=== PATIENT | female | born 1970 | race Caucasian/White ===

== ENCOUNTER → 2023-06-14 | Day surgery (SDC) | payer BC ==
[2023-06-14 13:10] VITALS: RESP 18; TEMP 98.2
[2023-06-14 13:52] VITALS: BP 118/83; PULSE 72
--- NOTE | 2023-06-14 14:12 | US ---
ULTRASOUND GUIDED FNA THYROID BIOPSY: CLINICAL HISTORY: Request for 2.1 cm left thyroid nodule FNA FINDINGS: The procedure was explained to the patient. The risks, complications, benefits and alternatives were discussed and any questions were answered. Informed consent was obtained. Patient was placed supin e on the ultrasound table and prepped and draped in the usual sterile fashion. Utilizing a 25 gauge needle, five passes were made into the requested left thyroid nodule. Patient was stable throughout the procedure. Pathology is pending. All elements of maximal barrier technique were utilized. IMPRESSION: 1. Successful ultrasound guided FNA thyroid biopsy.
== END ==
LOC: RADPROMAIN 12:16
PROVIDERS: ATTEND Internal Medicine Endocrinology, Diabetes & Metabolism
DX: E04.1 Nontoxic single thyroid nodule (principal)
CPT/HCPCS: 10005; 88173; 88305

== ENCOUNTER → 2023-06-30 | Outpatient (CLI) | payer BC ==
[2023-07-01 04:17] LABS: ALT 13 U/L (8-44); AST 17 U/L (13-35); Albumin 4.5 g/dL (3.8-4.9); Albumin/Globulin Ratio 1.73 Ratio (1.60-3.17); Alkaline Phosphatase 77 U/L (41-126); BUN/Creat Ratio 32.33 Ratio (12.00-20.00); Blood Urea Nitrogen 19.4 mg/dL (9.0-27.0); Carbon Dioxide 22.7 mmol/L (21.6-31.8); Chloride 105 mmol/L (96-109); Globulin 2.6 g/dL (1.6-3.3); Glucose 88 mg/dL (70-110); Potassium 4.3 mmol/L (3.5-5.5); Sodium 141 mmol/L (135-145); Total Bilirubin 0.3 mg/dL (0.3-1.2); Total Protein 7.1 g/dL (6.2-8.2)
== END | disposition home or self-care (01) ==
LOC: LABWHC1 15:48
PROVIDERS: ATTEND Internal Medicine Endocrinology, Diabetes & Metabolism
DX: E03.8 Other specified hypothyroidism (principal); D35.1 Benign neoplasm of parathyroid gland; E55.9 Vitamin D deficiency, unspecified
CPT/HCPCS: 36415; 80053; 82306; 83970; 84443

== ENCOUNTER → 2023-12-06 | Outpatient (CLI) | payer BC ==
[2023-12-06 14:53] VITALS: BP 122/84; PULSE 93; TEMP 98.1; BMI 44.6
--- NOTE | 2023-12-06 17:11 | P.HPBAR ---
Bariatric H&P - History & Physicial H&P Date: 12/06/23 History & Physicial: Visit/CC: initial clinic visit Patient initial contact: Initial weight: Initial weight in pounds: Height: 5 ft 4 in Initial BMI: Last weight: Current weight: 117.934 kg Current weight in pounds: 260.00 Current BMI: 44.6 [place] body weight (based on NIH guidelines): 54.431 kg Excess body weight loss: The patient is a 53 year-old F who presents for Bariatric Assessment. Patient presents today to discuss weight loss surgery. Patient states she has been considering bariatric surgery for some time. Currently most interested in sleeve gastrectomy. She has a coworker that had a sleeve and did quite well. She has a sister who had a Jennifer-en-Y bypass open 15 years ago or so and unfortunately gained back a lot of her weight. Patient with past medical history including hypothyroidism and borderline hypercholesterolemia. No history of DVT or dysphagia. Non-smoker. Mild GERD symptoms. Takes Tums and occasional omeprazole. Surgical history includes . Patient has tried GLP-1 agonists in the past with some side effects and marginal benefit. Currently on Adipex. Review of Systems The patient denies any acute changes in vision or hearing, no dysphagia or odynophagia, no chest pain or shortness of breath, no dysuria or hematuria, no headache, no runny nose, no rectal bleeding or melena, no unexplained weight loss Past Medical History Past Medical History: Thyroid Disorder History of Any Multi-Drug Resistant Organisms: None Reported Past Surgical History: Section, Orthopedic Surgery Additional Past Surgical History / Comment(s): left knee surgery in high school Past Anesthesia/Blood Transfusion Reactions: No Reported Reaction Past Psychological History: No Psychological Hx Reported Smoking Status: Never smoker Past Alcohol Use History: Occasional Past Drug Use History: None Reported - Past Family History Father Family Medical History: Cancer Additional Family Medical History / Comment(s): Prostate cancer Mother Family Medical History: Cancer Additional Family Medical History / Comment(s): breast and renal cancer Surgical - Exam Vital Signs Temp Pulse BP 98.1 F 93 122/84 12/06/23 14:49 12/06/23 14:49 12/06/23 14:49 Physical exam: General: Well-developed, well-nourished HEENT: Normocephalic, sclerae nonicteric Abdomen: Nontender, nondistended Extremities: No edema Neuro: Alert and oriented Bariatric Assessment & Plan (1) Morbid obesity Narrative/Plan: 53-year-old female with a BMI of 44. Patient has comorbidities as described. P atient currently interested in gastrectomy. We discussed alternative options of weight loss surgeries including band, gastric bypass, duodenal switch. Estimated weight loss with the surgeries and associated risks both perioperative and long-term reviewed in detail. Patient remains interested in sleeve gastrectomy currently. She will continue to consider these options. Tentatively will plan upcoming EGD for preoperative assessment of the stomach. Patient will contact me with questions. Status: Acute Bariatric Checklist Checklist: Plan: Checklist: EGD: 1. Hiatal hernia: 2. H. Pylori: HgbA1c: Vitamin D: Smoking: Primary care physician referral: Psychiatry clearance: Cardiology clearance: Sleep study: Diet journal: VTE risk score: VTE risk level: Rehab needs at discharge:
== END ==
LOC: BARWHC3 13:59
PROVIDERS: ATTEND Surgery
DX: E66.01 Morbid (severe) obesity due to excess calories
CPT/HCPCS: 99212

== ENCOUNTER → 2023-12-06 | Outpatient (CLI) | payer BC ==
[2023-12-07 02:22] LABS: HCT 46.7 % (37.2-46.3); HGB 14.5 g/dL (12.0-15.0); MCH 26.8 pg (27.0-32.0); MCV 86.3 FL (80.0-97.0); Mean Platelet Volume 10.7 FL (9.5-12.2); NRBC Per 100 WBC 0 X 10*3/uL (0.00-0.01); Platelet Count 221 X 10*3/uL (140-440); RBC 5.41 X 10*6/uL (4.10-5.20); RDW 13.6 % (11.5-14.5)
[2023-12-07 03:20] LABS: ALT 13 U/L (8-44); AST 16 U/L (13-35); Albumin 4.6 g/dL (3.8-4.9); Alkaline Phosphatase 82 U/L (41-126); BUN/Creat Ratio 24.43 Ratio (12.00-20.00); Blood Urea Nitrogen 17.1 mg/dL (9.0-27.0); Calcium 9.9 mg/dL (8.7-10.3); Carbon Dioxide 23.5 mmol/L (21.6-31.8); Chloride 104 mmol/L (96-109); Globulin 2.7 g/dL (1.6-3.3); Glucose 95 mg/dL (70-110); Iron 68 UG/DL (50-170); Potassium 4.5 mmol/L (3.5-5.5); Sodium 141 mmol/L (135-145); Total Bilirubin 0.4 mg/dL (0.3-1.2); Total Protein 7.3 g/dL (6.2-8.2)
[2023-12-07 03:51] LABS: Vitamin B12 >3600.0 pg/mL (200.0-944.0)
== END | disposition home or self-care (01) ==
LOC: LABWHC1 15:42
PROVIDERS: ATTEND Family Medicine
DX: E89.1 Postprocedural hypoinsulinemia (principal); E88.810 Metabolic syndrome; E55.9 Vitamin D deficiency, unspecified; K90.89 Other intestinal malabsorption
CPT/HCPCS: 36415; 80053; 82306; 82607; 82746; 83036; 83540; 84425; 85027; 93005

== ENCOUNTER → 2023-12-27 | Outpatient (CLI) | payer BC ==
--- NOTE | 2023-12-28 10:03 | CA ---
Transthoracic Echo Report Name: Farnaz Comer Age: 53 Gender: F : 1970 Exam Date: 12/27/2023 16:07 Exam Location: [facility] Ht (in): 65 Wt (lb): 260 Ordering Physician: Madi Ku MD Attending/Referring Phys: Veronica Grajeda [facility] Hvac Technician Krissy Gordon RDCS Procedure CPT: Indications: Z01.818 ENCOUNTER FOR OTHER PREPROCEDURAL EXAMINAT Cardiac Hx: Technical Quality: Good Contrast 1: Total Dose (mL): Contrast 2: Total Dose (mL): MEASUREMENTS (Male / Female) Normal Values 2D ECHO LV Diastolic Diameter PLAX 4.6 cm 4.2 - 5.9 / 3.9 - 5.3 cm LV Systolic Diameter PLAX 2.8 cm IVS Diastolic Thickness 1.4 cm 0.6 - 1.0 / 0.6 - 0.9 cm LVPW Diastolic Thickness 1.3 cm 0.6 - 1.0 / 0.6 - 0.9 cm LV Relative Wall Thickness 0.6 RV Internal Dim ED PLAX 3.1 cm LA Systolic Diameter LX 4.1 cm 3.0 - 4.0 / 2.7 - 3.8 cm LV Diastolic Volume MOD BP 69.0 cm??? 67 - 155 / 56 - 104 cm??? LV Systolic Volume MOD BP 28.3 cm??? 22 - 58 / 19 - 49 cm??? LV Ejection Fraction MOD BP 59.0 % >= 55 % LV Cardiac Index MOD BP 1261.6 cm???/min???m??? LV Diastolic Volume MOD 4C 74.0 cm??? LV Systolic Volume MOD 4C 33.0 cm??? LV Ejection Fraction MOD 4C 55.4 % LV Cardiac Index MOD 4C 1268.3 cm???/min???m??? LV Diastolic Length 4C 7.8 cm LV Systolic Length 4C 6.7 cm LV Diastolic Volume MOD 2C 62.6 cm??? LV Systolic Volume MOD 2C 24.2 cm??? LV Ejection Fraction MOD 2C 61.3 % LV Cardiac Index MOD 2C 1189.2 cm???/min???m??? LV Diastolic Length 2C 7.5 cm LV Systolic Length 2C 6.8 cm LA Volume 43.2 cm??? 18 - 58 / 22 - 52 cm??? LA Volume Index 18.1 cm???/m??? 16 - 28 cm???/m??? M-MODE Aortic Root Diameter MM 3.1 cm LA Systolic Diameter MM 3.5 cm LA Ao Ratio MM 1.1 AV Cusp Separation MM 1.9 cm DOPPLER MV Area PHT 2.5 cm??? Mitral E Point Velocity 59.7 cm/s Mitral A Point Velocity 90.8 cm/s Mitral E to A Ratio 0.7 MV Deceleration Time 303.4 ms FINDINGS Left Ventricle Left ventricular ejection fraction is estimated at 55-60%. Mildly increased left ventricular wall thickness. Left ventricular wall thickness normal. Normal left ventricular systolic function with no obvious regional wall motion abnormalities. Right Ventricle Normal right ventricular size and function. Right ventricular systolic pressure within normal limits. Right Atrium Normal right atrial size. Left Atrium Mildly increased left atrial diameter. Mitral Valve Structurally normal mitral valve. Trace to mild mitral regurgitation. No mitral stenosis. Aortic Valve Trileaflet aortic valve. No aortic valve stenosis or regurgitation. Tricuspid Valve Structurally normal tricuspid valve. Trace tricuspid regurgitation. No tricuspid stenosis. Pulmonic Valve Structurally normal pulmonic valve. Trace pulmonic regurgitation. No pulmonic stenosis. Pericardium No pericardial or pleural effusion. Aorta Normal size aortic root and proximal ascending aorta. CONCLUSIONS Normal LV size and systolic function. No significant abnormality on the Doppler exam. No pericardial effusion. No pulmonary hypertension Previewed by: Dr. Otto Lainez MD (Electronically Signed) Final Date: 28 December 2023 10:02
== END | disposition home or self-care (01) ==
LOC: RADECHMAIN 15:33
PROVIDERS: ATTEND Family Medicine
DX: Z01.818 Encounter for other preprocedural examination
CPT/HCPCS: 93306

== ENCOUNTER → 2024-01-03 | Outpatient (CLI) | payer BC ==
[~2024-01-03] MED LIST: REGADENOSON 0.4 MG/5 ML SYRINGE IV ONE
--- NOTE | 2024-01-03 10:00 | CA ---
Lexiscan Nuclear Stress Test Report Name: Farnaz Comer Exam Date: 01/03/2024 09:39 Exam Location: [facility] Ht (in): 65 Wt (lb): 260 BSA: 2.21 Ordering Phys: Madi Ku MD Referring Phys: Veronica Grajeda Technologist: Alex Ovalle Age: 53 Gender: F : 1970 Procedure CPT: Indications: Z01.818 PRE ADMISSION TESTING ICD-10 Codes: Preop evaluation Patient History: Medications: SYNTHROID,,,,,, VIT D,,,,,, VIT B COMPLEX,,,,, Meds past 24 hrs: Pretest Chest Pain: STRESS TEST Lexiscan Protocol Exercise Duration (min:sec): 01:[address] Depressions (mm): Angina Score: Zambrano Score: Resting HR (bpm): 71 Peak HR (bpm): 103 Resting BP (mmHg): 138 / 98 Peak BP (mmHg): 152 / 89 MPHR: 166 Target HR: 141 % MPHR: 62 METS: 1.0 Total Dose: Peak Dose: Atropine: Double Product: 90318 BP Response: Stress Termination: INFUSION COMPLETE Stress Symptoms: NO SYMPTOMS Stress Summary: ECG ANALYSIS Resting ECG: Sinus rhythm with right bundle branch block Stress ECG: Patient was given intravenous Lexiscan as per protocol did not have chest pain or diagnostic ST segment depression CONCLUSIONS Negative stress test by EKG criteria Cardiolite portion of the stress test will be reported separately Dr. Carlton Shaffer MD (Electronically Signed) Final Date: 03 January 2024 09:59
--- NOTE | 2024-01-04 01:13 | NM ---
EXAMINATION TYPE: NM stress lexiscan cardiolite DATE OF EXAM: 01/03/2024 COMPARISON: NONE CLINICAL INDICATION: Female, 53 years old with history of Z01.818 PRE ADMISSION TESTING; family histo ry of heart attack. Right bundle branch block. TECHNIQUE: After the intravenous administration of 8.1 mCi Tc 99m Sestamibi - Cardiolite resting SPE CT images acquired 45 minutes post injection. The patient received 0.4mg Lexiscan, 25.6 mCi Tc 99m Sestamibi - Stress images obtained [address] injection FINDINGS: Review of stress and rest SPECT images demonstrates no distinct perfusion abnormality. Some diminishe d uptake in the anterior wall could reflect area of old infarct versus artifact, latter is favored. C orrelation with EKG is advised. Gated analysis shows normal wall motion with an estimated left ventr icular ejection fraction of 67 %. IMPRESSION: No scintigraphic evidence for reversible ischemia. [facility], , 01/04/2024 1:11 AM
== END | disposition home or self-care (01) ==
LOC: RADNMMAIN 07:58
PROVIDERS: ATTEND Family Medicine
CPT/HCPCS: 78452; 93017

== ENCOUNTER → 2024-01-10 | Day surgery (SDC) | payer BC ==
[~2024-01-10] MED LIST changes: +LIDOCAINE 1% (10MG/ML) FOR IV START INTRADERMA PRN; +LIDOCAINE 2% (PF) 20 MG/ML 5 ML VIAL ONE; +ONDANSETRON 4 MG/2 ML VIAL IVP PRN; +PROPOFOL 10 MG/ML 20 ML VIAL IV ONE; -REGADENOSON 0.4 MG/5 ML SYRINGE IV ONE
[2024-01-10] MEDS: IV FLUID CONTINUATION 1,000 ML IV ONE (11:50)
[2024-01-10 11:57] VITALS: TEMP 97.2
[2024-01-10] MEDS: LACTATED RINGERS 1,000 ML IV SCH (12:09)
--- NOTE | 2024-01-10 12:21 | P.GSHP ---
History of Present Illness H&P Date: 01/10/24 Chief Complaint: GERD 53-year-old female here for upper endoscopy. Patient being evaluated for possible sleeve gastrectomy. Patient with mild reflux symptoms. No dysphagia. Past Medical History Past Medical History: Thyroid Disorder Additional Past Medical History / Comment(s): hypothyroidism History of Any Multi-Drug Resistant Organisms: None Reported Past Surgical History: Section, Orthopedic Surgery Additional Past Surgical History / Comment(s): left knee surgery in high school Past Anesthesia/Blood Transfusion Reactions: No Reported Reaction Smoking Status: Never smoker - Past Family History Father Family Medical History: Cancer, Coronary Artery Disease (CAD), Diabetes Mellitus Additional Family Medical History / Comment(s): Prostate cancer, CABG Mother Family Medical History: Cancer, Diabetes Mellitus Additional Family Medical History / Comment(s): breast and renal cancer Medications and Allergies Home Medications Medication Instructions Recorded Confirmed Type Cholecalciferol [Vitamin D3 (10 10 mcg PO DAILY 06/06/23 01/10/24 History Mcg = 400 Iu)] Levothyroxine Sodium [Synthroid] 50 mcg PO DAILY 06/06/23 01/10/24 History Vitamin B Complex 1 tab PO DAILY 01/09/24 01/10/24 History Allergies Allergy/AdvReac Type Severity Reaction Status Date / Time No Known Allergies Allergy Verified 01/10/24 11:55 Surgical - Exam Vital Signs Temp Pulse Resp BP Pulse Ox 97.2 F L 91 16 142/102 98 01/10/24 11:56 01/10/24 11:56 01/10/24 11:56 01/10/24 11:56 01/10/24 11:56 Physical exam: General: Well-developed, well-nourished HEENT: Normocephalic, sclerae nonicteric Abdomen: Nontender, nondistended Extremities: No edema Neuro: Alert and oriented Assessment and Plan (1) GERD (gastroesophageal reflux disease) Narrative/Plan: Will proceed with EGD at this time. Current Visit: Yes Status: Acute Code(s): K21.9 - GASTRO-ESOPHAGEAL REFLUX DISEASE WITHOUT ESOPHAGITIS SNOMED Code(s): 014512239
--- NOTE | 2024-01-10 12:27 | P.PCN ---
Date of Procedure: 01/10/24 Procedure(s) Performed: Preoperative Dx: GERD, presurgical Postoperative Dx: Gastritis Procedure: EGD with Bx Anesthesia: Sedation Endoscopist: Dr. Martin Specimens: Antrum Endoscopic Procedure: The patient was on the endoscopy table in the left decubitus position. The Olympus gastroscope was inserted into the oropharynx and passed under direct visualization to the region of the third portion of the duodenum. From that point the scope was slowly withdrawn inspecting all surfaces carefully. There were no neoplastic inflammatory or polypoid lesions throughout the duodenum. The pylorus was widely patent. The stomach was carefully inspected. There was mild gastritis in the antrum. A biopsy of the antrum took place to rule out H. pylori. Retroflexion revealed a normal hiatus. The esophagus was then carefully examined. There were no neoplastic inflammatory or polypoid lesions throughout the visualized esophagus. The patient was then taken to the recovery room in stable condition per anesthesia guidelines. Recommendations: Await biopsy results. Resume antiacids. Follow-up bariatric center.
[2024-01-10 12:44] VITALS: BP 110/75; PULSE 78; RESP 18
== END ==
LOC: ORWHC2ENDO 11:35
PROVIDERS: ATTEND Surgery
DX: K29.50 Unspecified chronic gastritis without bleeding (principal); K21.9 Gastro-esophageal reflux disease without esophagitis; E03.9 Hypothyroidism, unspecified; Z79.890 Hormone replacement therapy; Z79.899 Other long term (current) drug therapy; Z98.890 Other specified postprocedural states
CPT/HCPCS: 43239; J2704; J2003; 88305

== ENCOUNTER → 2024-01-16 | Outpatient (CLI) | payer BC ==
[2024-01-16 13:18] VITALS: BMI 45.4
== END ==
LOC: BARWHC3 12:50
PROVIDERS: ATTEND Surgery
DX: Z71.3 Dietary counseling and surveillance (principal); E66.01 Morbid (severe) obesity due to excess calories
CPT/HCPCS: 97804

== ENCOUNTER → 2024-01-17 | Outpatient (CLI) | payer BC ==
[2024-01-17 15:02] VITALS: BP 141/96; PULSE 82; RESP 16; TEMP 98.1; BMI 45.1
--- NOTE | 2024-01-17 15:30 | P.BASOAP ---
Subjective Progress Note Date: 01/17/24 Principal diagnosis: Morbid obesity Patient returns after recent preoperative EGD. Scope shows mild gastritis. No H. pylori. Patient remains very interested in proceeding with sleeve gastrectomy. No tobacco use. No changes to her previous history and physical. Objective - Vital Signs Vital signs: Vital Signs Temp 98.1 F 01/17/24 15:00 Pulse 82 01/17/24 15:00 Resp 16 01/17/24 15:00 BP 141/96 01/17/24 15:00 Pulse Ox FiO2 Intake & Output 01/16/24 01/17/24 01/17/24 18:59 06:59 18:59 Weight 119.295 kg - Exam Abdomen: Soft, nontender, nondistended Assessment/Plan (1) Morbid obesity Narrative/Plan: 53-year-old female with morbid obesity BMI 45 at this time. Will tentatively proceed with laparoscopic da Reji assisted sleeve gastrectomy 02/19. Surgical consent form and average weight loss again reviewed in detail. The risks of bleeding, infection, stenosis, stricture, leak, abscess, fistula formation, peritonitis, poor weight loss, reflux, vomiting, conversion to an open procedure, aborting sleeve gastrectomy, AL, PE, DVT, and were discussed. The patient understands and wishes to proceed. Plan: Date: 01/17/24 Initial Weight: 117.934 kg Initial BMI: 44.6 Current Weight: 119.295 kg Current BMI: 45.1 Type of Surgery: Total Volume in Band: Previous Volume: Volume Removed: Volume Added: Band Size:
== END ==
LOC: BARWHC3 14:52
PROVIDERS: ATTEND Surgery
DX: E66.01 Morbid (severe) obesity due to excess calories (principal); K29.70 Gastritis, unspecified, without bleeding; Z68.42 Body mass index [BMI] 45.0-49.9, adult
CPT/HCPCS: 99211

== ENCOUNTER → 2024-02-15 | Outpatient (CLI) | payer BC ==
[2024-02-15 18:19] LABS: Basophils # (A) 0.03 X 10*3/uL (0.00-0.10); Basophils % (A) 0.4 %; Eosinophils # (A) 0.07 X 10*3/uL (0.04-0.35); HCT 42.2 % (37.2-46.3); HGB 13.6 g/dL (12.0-15.0); Lymphocytes # (A) 2.21 X 10*3/uL (0.90-5.00); Lymphocytes % (A) 32.5 %; MCH 26.6 pg (27.0-32.0); MCHC 32.2 g/dL (32.0-37.0); MCV 82.6 FL (80.0-97.0); Mean Platelet Volume 10.9 FL (9.5-12.2); Monocytes # (A) 0.42 X 10*3/uL (0.20-1.00); Monocytes % (A) 6.2 %; NRBC Per 100 WBC 0 X 10*3/uL (0.00-0.01); Neutrophils # (A) 4.05 X 10*3/uL (1.80-7.70); Neutrophils % (A) 59.6 %; Platelet Count 229 X 10*3/uL (140-440); RBC 5.11 X 10*6/uL (4.10-5.20); RDW 13.3 % (11.5-14.5)
[2024-02-15 18:55] LABS: ALT 19 U/L (8-44); AST 21 U/L (13-35); Albumin 4.3 g/dL (3.8-4.9); Albumin/Globulin Ratio 1.72 Ratio (1.60-3.17); Alkaline Phosphatase 71 U/L (41-126); BUN/Creat Ratio 43.33 Ratio (12.00-20.00); Calcium 9.7 mg/dL (8.7-10.3); Carbon Dioxide 20.6 mmol/L (21.6-31.8); Chloride 106 mmol/L (96-109); Globulin 2.5 g/dL (1.6-3.3); Glucose 99 mg/dL (70-110); Potassium 3.7 mmol/L (3.5-5.5); Sodium 140 mmol/L (135-145); Total Bilirubin 0.3 mg/dL (0.3-1.2); Total Protein 6.8 g/dL (6.2-8.2)
== END | disposition home or self-care (01) ==
LOC: LABWHC1 15:44
PROVIDERS: ATTEND Surgery
DX: Z01.812 Encounter for preprocedural laboratory examination (principal)
CPT/HCPCS: 80053; 85025; 86850; 86900; 86901

== ENCOUNTER 2024-02-20 11:14 | Observation (INO) | payer BC ==
[~2024-02-20 11:14] MED LIST changes: -LIDOCAINE 1% (10MG/ML) FOR IV START INTRADERMA PRN; -LIDOCAINE 2% (PF) 20 MG/ML 5 ML VIAL ONE; +MIDAZOLAM 2 MG/2 ML VIAL IV PRN; -ONDANSETRON 4 MG/2 ML VIAL IVP PRN; -PROPOFOL 10 MG/ML 20 ML VIAL IV ONE
[2024-02-20] MEDS: LACTATED RINGERS 1,000 ML IV SCH (12:06)
[2024-02-20] MEDS: ACETAMINOPHEN TAB 500 MG TAB PO PRN (12:06)
[2024-02-20] MEDS: LIDOCAINE 1% (10MG/ML) FOR IV START INTRADERMA STA (12:07)
[2024-02-20] MEDS: IV FLUID CONTINUATION 1,000 ML IV ONE (12:10)
[2024-02-20] MEDS: ONDANSETRON 4 MG/2 ML VIAL IVP PRN (12:20)
[2024-02-20] MEDS: DEXAMETHASONE SOD PHOSPHATE 4 MG/ML 1 ML VIAL IVP STA (12:20)
[2024-02-20] MEDS: FAMOTIDINE 20 MG/2 ML VIAL IV STA (12:21)
[2024-02-20] MEDS: ENOXAPARIN 40 MG/0.4 ML SYRINGE SQ PRN (12:22)
[2024-02-20] MEDS: SCOPOLAMINE 1 MG/72 HR PATCH TRANSDERM STA (12:22)
--- NOTE | 2024-02-20 13:08 | P.GSHP ---
History of Present Illness H&P Date: 02/20/24 Chief Complaint: Morbid obesity 53-year-old female initially seen in the office mid December. Patient interested in sleeve gastrectomy. History of hypothyroidism and hypercholesterolemia. No smoking use. Mild GERD symptoms. Recent EGD showed mild gastritis. Patient has lost weight since she was first seen. BMI initially 44 today 42. Past Medical History Past Medical History: Osteoarthritis (OA), Thyroid Disorder History of Any Multi-Drug Resistant Organisms: None Reported Past Surgical History: Section, Orthopedic Surgery Additional Past Surgical History / Comment(s): left knee surgery in high school, EKG, COLONOSCOPY Past Anesthesia/Blood Transfusion Reactions: No Reported Reaction Smoking Status: Never smoker - Past Family History Father Family Medical History: Cancer, Coronary Artery Disease (CAD), Diabetes Mellitus Additional Family Medical History / Comment(s): Prostate cancer, CABG Mother Family Medical History: Cancer, Diabetes Mellitus Additional Family Medical History / Comment(s): breast and renal cancer Medications and Allergies Home Medications Medication Instructions Recorded Confirmed Type Cholecalciferol [Vitamin D3 (10 10 mcg PO DAILY 06/06/23 02/16/24 History Mcg = 400 Iu)] Levothyroxine Sodium [Synthroid] 50 mcg PO DAILY 06/06/23 02/16/24 History Vitamin B Complex 1 tab PO DAILY 01/09/24 02/16/24 History Calcium Citrate 250 mg PO BID 02/16/24 02/16/24 History Allergies Allergy/AdvReac Type Severity Reaction Status Date / Time No Known Allergies Allergy Verified 02/20/24 11:50 Surgical - Exam Vital Signs Temp Pulse Resp BP 97.7 F 98 16 138/65 02/20/24 11:59 02/20/24 11:59 02/20/24 11:59 02/20/24 11:59 Physical exam: General: Well-developed, well-nourished HEENT: Normocephalic, sclerae nonicteric Abdomen: Nontender, nondistended Extremities: No edema Neuro: Alert and oriented Assessment and Plan (1) Morbid obesity Narrative/Plan: 53-year-old female with morbid obesity. Will proceed with laparoscopic da Reji assisted sleeve gastrectomy, possible open. The risks of bleeding, infection, stenosis, stricture, leak, abscess, fistula formation, peritonitis, poor weight loss, reflux, vomiting, conversion to an open procedure, aborting sleeve gastrectomy, CA, PE, DVT, and were discussed. The patient understands and wishes to proceed. Current Visit: No Status: Acute Code(s): E66.01 - MORBID (SEVERE) OBESITY DUE TO EXCESS CALORIES SNOMED Code(s): 836132655
[2024-02-20] MEDS ORDERED: NEOSTIGMINE 1 MG/ML 10 ML VIAL ONE (13:19)
[2024-02-20] MEDS ORDERED: ePHEDrine 50 MG/ML 1 ML VIAL ONE (13:19)
[2024-02-20] MEDS ORDERED: HYDROmorphone (PF) 1 MG/ML ONE (13:19)
[2024-02-20] MEDS ORDERED: GLYCOPYRROLATE 0.2 MG/ML 2 ML VIAL ONE (13:19)
[2024-02-20] MEDS ORDERED: PHENYLEPHRINE-0.9% NACL SYG 1,000 MCG/10 ML SYRINGE ONE (13:19)
[2024-02-20] MEDS ORDERED: fentaNYL (PF) 50 MCG/ML 2 ML AMP ONE (13:19)
[2024-02-20] MEDS ORDERED: ROCURONIUM 10 MG/ML (5 ML VIAL) IV ONE (13:19)
[2024-02-20] MEDS ORDERED: SUCCINYLCHOLINE CHLORIDE 200 MG/10 ML VIAL IV ONE (13:19)
[2024-02-20] MEDS ORDERED: LIDOCAINE 1% INJ 10MG/ML (20 ML MDV) ONE (13:19)
[2024-02-20] MEDS ORDERED: PROPOFOL 10 MG/ML 20 ML VIAL IV ONE (13:19)
[2024-02-20] MEDS ORDERED: MIDAZOLAM 2 MG/2 ML VIAL ONE (13:19)
[2024-02-20] MEDS: BUPIVACAINE (PF) 0.25% 30 ML VIAL SQ ONE (13:39)
[2024-02-20] MEDS ORDERED: SIMETHICONE 40 MG/0.6 ML DROPS 2,000 MG/30 ML BOTTLE PO PRN (15:13)
[2024-02-20] MEDS ORDERED: NALOXONE 0.4 MG/ML 1 ML VIAL IV PRN (15:13)
[2024-02-20] MEDS ORDERED: diphenhydrAMINE 50 MG/ML 1 ML VIAL IVP PRN (15:13)
[2024-02-20] MEDS ORDERED: HYDROmorphone 0.5 MG/0.5 ML SYRINGE IVP PRN (15:13)
[2024-02-20] MEDS ORDERED: HYOSCYAMINE ORAL DROPS 1.875 MG/15 ML BOTTLE PO PRN (15:13)
[2024-02-20] MEDS ORDERED: HYDROmorphone 1 MG/ML 1 ML SYRINGE IVP PRN (15:13)
--- NOTE | 2024-02-20 15:24 | P.OP ---
Date of Procedure: 02/20/24 Procedure(s) Performed: PREOPERATIVE DIAGNOSIS: Morbid obesity, hypercholesterolemia POSTOPERATIVE DIAGNOSIS: Same PROCEDURE: Da Reji assisted laparoscopic sleeve gastrectomy SURGEON: Mario ZURITAL: 10 cc ANESTHESIA: General COMPLICATIONS: None OPERATIVE PROCEDURE: Patient was placed in the operating table in the supine position. The patient was then placed under general anesthesia at that time. The abdomen was prepped and draped in the usual sterile fashion. A 5 mm optical trocar was placed in the left upper quadrant 20 cm inferior to the xiphoid process. Insufflation took place up to 15 mmHg. No adhesions were seen. A 5 mm subxiphoid incision was made and the medium Zara retractor was used to elevate the left lobe of liver anteriorly. This was held in place using the fixed arm retractor. An additional 12 mm trocar was placed in the right paramedian location and 2 additional 8 mm trochars were placed in the left upper quadrant one medial and one lateral to the initially placed optical trocar. All of these trochars were placed along the same plane. The initial 5 was then switched to an 8 mm trocar. The robot was then docked appropriately. The 8 mm camera was placed in the left paramedian trocar site down viewing. A fenestrated bipolar was placed in arm 1, arm 3 had the vessel sealer, arm 4 had the small grasper retractor. At that point I moved to the distal aspect of the greater curvature the stomach. The short gastric vasculature were divided using the vessel sealer. This dissection took place distally until we were 4 cm from the pylorus. The posterior adhesions were divided as well. The dissection then took place proximally along the stomach until the posterior short gastrics were divided and the fundus of the stomach was fully mobilized. The blunt tipped 40- Prydeinig bougie dilator was advanced into the stomach and advanced all the way to the prepyloric location. The patient's stomach by palpation seemed to be of average thickness. The first firing of the stapler was a green load 60. Second load was a blue load 60. The next 4 loads were blue load 60 with seam guard. The stomach was placed in the right upper quadrant. The dilator was removed. The oral gastric tube was reinserted. The stomach was insufflated with approximately 100 mL of methylene blue. No evidence of leak or obstruction was seen. Pressure was then dropped to 8 mm for 2-3 minutes. The staple line was inspected and 2 small areas of oozing was identified and controlled using the bipolar cautery and two 12 mm clips. No further bleeding was seen. Tisseel fibrin glue was then used along the length of the staple line and hiatus. The robot was then undocked. The da Reji laparoscope was used and the stomach was removed from the 12 mm trocar site without difficulty. That area was then irrigated with saline. The fascia at the 12mm site was closed using figure-of- eight 0 Vicryl sutures with the laparoscopic suture passer and Justin Sourav technique. The insufflation was evacuated. The skin at all 5 incisions were closed using 4-0 Monocryl sutures. Skin glue was then applied. DISPOSITION: Stable to recovery room DISPOSITION: Stable to recovery room
[2024-02-20] MEDS: HYDROmorphone 0.5 MG/0.5 ML SYRINGE IVP PRN (16:17)
[2024-02-20] MEDS: 0.9% NACL WITH KCL 20 MEQ/L 1,000 ML IV SCH (18:13)
[2024-02-20] MEDS: ACETAMINOPHEN IV (For NPO) 1,000 MG in EMPTY BAG 1 BAG IVPB SCH (18:13)
[2024-02-20] MEDS: ALBUTEROL NEBULIZED 2.5 MG/3 ML INHALATION SCH (20:50)
[2024-02-20] MEDS: FAMOTIDINE 20 MG TAB PO SCH (23:00)
[2024-02-21] MEDS: ENOXAPARIN 40 MG/0.4 ML SYRINGE SQ SCH (02:17)
[2024-02-21] MEDS: ONDANSETRON 4 MG/2 ML VIAL IVP PRN (04:23)
[2024-02-21] MEDS: 0.9% NACL WITH KCL 20 MEQ/L 1,000 ML IV SCH (06:01)
[2024-02-21 08:56] LABS: Blood Urea Nitrogen 12.9 mg/dL (9.0-27.0); Calcium 9.1 mg/dL (8.7-10.3); Carbon Dioxide 19.9 mmol/L (21.6-31.8); Chloride 109 mmol/L (96-109); Phosphorus 4.1 mg/dL (2.4-5.1); Potassium 4.9 mmol/L (3.5-5.5); Sodium 142 mmol/L (135-145)
[2024-02-21 09:14] LABS: Basophils # (A) 0 X 10*3/uL (0.00-0.10); Basophils % (A) 0 %; Eosinophils # (A) 0 X 10*3/uL (0.04-0.35); Eosinophils % (A) 0 %; HGB 12.8 g/dL (12.0-15.0); Lymphocytes % (A) 13.1 %; MCH 26.7 pg (27.0-32.0); MCHC 31.2 g/dL (32.0-37.0); MCV 85.6 FL (80.0-97.0); Mean Platelet Volume 11.3 FL (9.5-12.2); Monocytes # (A) 0.22 X 10*3/uL (0.20-1.00); Monocytes % (A) 4.1 %; NRBC Per 100 WBC 0 X 10*3/uL (0.00-0.01); Neutrophils % (A) 82.4 %; Platelet Count 194 X 10*3/uL (140-440); RBC 4.79 X 10*6/uL (4.10-5.20); RDW 13.7 % (11.5-14.5); WBC 5.34 X 10*3/uL (4.50-10.00)
[2024-02-21] MEDS: KETOROLAC 15 MG/ML 1 ML VIAL IVP SCH (09:23)
[2024-02-21] MEDS: PANTOPRAZOLE 40 MG/10 ML VIAL IV SCH (09:24)
[2024-02-21] MEDS: LEVOTHYROXINE 50 MCG TAB PO SCH (09:32)
--- NOTE | 2024-02-21 11:10 | P.PN ---
Subjective Progress Note Date: 02/21/24 SURGICAL PROGRESS NOTE CHIEF COMPLAINT: Morbid obesity HISTORY OF PRESENT ILLNESS: Patient is postop day #1 status post sleeve gastrectomy. Patient reports having nausea and vomiting last night after akash orion. This has now resolved. She reports her pain is controlled. She is feeling better this morning. She is having a small amount of flatus. Denies any difficulty urinating. Afebrile. WBC 5.34 Hgb 12.8 creatinine 0.6 PHYSICAL EXAM: VITAL SIGNS: Reviewed. GENERAL: Well-developed in no acute distress. ABDOMEN: Soft. Nondistended. Incision sites clean dry and intact. Minimal tenderness around incision sites. NEUROLOGIC: Alert and oriented. Cranial nerves II through XII grossly intact. ASSESSMENT: 1. Morbid obesity, hypercholesterolemia PLAN: -Follow-up on upper GI results -Continue IV fluids -Toradol added for pain management -Encourage patient to ambulate -Encourage patient to use incentive spirometer -GI prophylaxis Protonix and DVT prophylaxis Lovenox I have personally seen and examined the patient, reviewed the [employer]PER[employer] /PAs history, exam and MDM and agree with the assessment and plan as written. Based on total visit time, I have performed more than 50% of the visit. As above: Patient had 1 episode of vomiting after trying to take her thyroid pill. Otherwise seems to be doing well. She is ambulating. Upper GI shows no leak or obstruction. Begin bariatric clears. Reassess later today for potential discharge. Objective - Vital Signs Vital signs: Vital Signs Temp 97.0 F L 02/21/24 07:00 Pulse 64 02/21/24 07:53 Resp 17 02/21/24 07:00 BP 112/78 02/21/24 07:00 Pulse Ox 96 02/21/24 07:00 FiO2 Intake & Output 02/20/24 02/21/24 02/21/24 18:59 06:59 18:59 Intake Total 1400 Output Total 10 400 Balance 1390 -400 Weight 114.9 kg Intake: IV 1400 Output: Urine 400 Estimated Blood Loss 10 Other: Voiding Method Toilet # Voids 1 1 - Labs CBC & Chem 7: 02/21/24 03:27 02/21/24 03:27 Labs: Abnormal Lab Results - Last 24 Hours (Table) 02/21/24 02/21/24 Range/Units 03:27 03:27 MCH 26.7 L (27.0-32.0) pg MCHC 31.2 L (32.0-37.0) g/dL Lymphocytes # 0.70 L (0.90-5.00) X 10*3/uL Eosinophils # 0 L (0.04-0.35) X 10*3/uL Carbon Dioxide 19.9 L (21.6-31.8) mmol/L Anion Gap 13.10 H (4.00-12.00) mmol/L
--- NOTE | 2024-02-21 11:22 | FL ---
EXAMINATION TYPE: FL UGI DATE OF EXAM: 02/21/2024 10:40 AM COMPARISON: None CLINICAL INDICATION:Female, 53 years old with history of Post Op Bariatric Surgery; TECHNIQUE: Limited single contrast UGI study is performed with Isovue-370. A total of 25 seconds of f luoroscopic time was utilized during procedure and 64 images obtained. DAP: not reported mGym2 FINDINGS: The stomach demonstrates a postsurgical morphology. No extravasation of contrast identifie d. No evidence of mass or ulcer disease. The duodenal bulb and sweep are unremarkable. Mild delay of contrast extending through the gastroesop hageal junction which resolved with subsequent swallows. IMPRESSION: Postsurgical changes without evidence of contrast extravasation. [facility], , 02/21/2024 11:20 AM
[2024-02-21 11:28] VITALS: BMI 42.1
--- NOTE | 2024-02-21 22:42 | P.CONS ---
History of Present Illness - Reason for Consult Consult date: 02/21/24 Medical management - Chief Complaint Status post sleeve gastrectomy - History of Present Illness Patient is a 53-year-old female with a past medical history of hypothyroidism, osteoarthritis and morbid obesity BMI 42.2 presenting to the hospital for elective laparoscopic sleeve gastrectomy. Patient is status post da Reji assisted laparoscopic sleeve gastrectomy. Postoperative day 1 Patient was complaining of nausea and vomiting last night but has since been resolved. Denied any complaints of worsening abdominal pain. No complaints of chest pain or shortness of breath. Able to pass small amount of flatus. Upper GI series showed postsurgical changes without evidence of contrast extrava sation. Patient was started on bariatric clear liquid diet at dinnertime. Lab data showed WBC 5.3 hemoglobin 12.8 and platelets 494 Sodium 142 potassium 4.9 chloride 109 bicarb is 19.9 BUN 12.9 and creatinine 0.6 and magnesium 2.0 calcium 9.1. Review of Systems Constitutional: Patient denies any fever or chills . No generalized weakness or weight loss. Abdomen: Patient complains of nausea and episode of vomiting last night. No diarrhea. Mild abdominal pain. Cardiovascular: Patient denies any chest pain or short of breath no palpitations. Respiratory: patient denied any cough or sputum production. No shortness of breath Neurologic: Patient denied any numbness or tingling. no headache. Musculoskeletal: Patient denies any complaints of joint swelling or deformity. Skin: Negative Psychiatric: Negative Endocrine: No heat or cold intolerance. No recent weight gain. Genitourinary: No dysuria or hematuria. All other 14 point ROS negative except the above Past Medical History Past Medical History: Osteoarthritis (OA), Thyroid Disorder History of Any Multi-Drug Resistant Organisms: None Reported Past Surgical History: Section, Orthopedic Surgery Additional Past Surgical History / Comment(s): left knee surgery in high school, EKG, COLONOSCOPY Past Anesthesia/Blood Transfusion Reactions: No Reported Reaction Past Psychological History: No Psychological Hx Reported Smoking Status: Never smoker Past Alcohol Use History: Occasional Past Drug Use History: None Reported - Past Family History Father Family Medical History: Cancer, Coronary Artery Disease (CAD), Diabetes Mellitus Additional Family Medical History / Comment(s): Prostate cancer, CABG Mother Family Medical History: Cancer, Diabetes Mellitus Additional Family Medical History / Comment(s): breast and renal cancer Medications and Allergies Home Medications Medication Instructions Recorded Confirmed Type Cholecalciferol [Vitamin D3 (10 10 mcg PO DAILY 06/06/23 02/16/24 History Mcg = 400 Iu)] Levothyroxine Sodium [Synthroid] 50 mcg PO DAILY 06/06/23 02/16/24 History Vitamin B Complex 1 tab PO DAILY 01/09/24 02/16/24 History Calcium Citrate 250 mg PO BID 02/16/24 02/16/24 History Omeprazole [PriLOSEC] 40 mg PO DAILY #90 cap 02/21/24 Rx Ondansetron Odt [Zofran Odt] 4 mg PO Q8HR PRN #9 tab 02/21/24 Rx Simethicone 40 mg/0.6 ml Drops 40 mg PO PCHS PRN #30 ml 02/21/24 Rx [Mylicon Drops] bisacodyL [Dulcolax] 5 mg PO DAILY PRN #10 tab 02/21/24 Rx Allergies Allergy/AdvReac Type Severity Reaction Status Date / Time No Known Allergies Allergy Verified 02/20/24 11:50 Physical Exam Vitals: Vital Signs Temp Pulse Pulse Resp BP Pulse Ox 02/21/24 07:53 64 02/21/24 07:41 64 02/21/24 07:00 97.0 F L 68 17 112/78 96 02/21/24 00:21 98.3 F 58 L 17 121/73 99 02/20/24 22:05 63 100/65 98 02/20/24 21:50 62 106/69 97 02/20/24 21:35 62 109/71 97 02/20/24 21:20 55 L 110/69 99 02/20/24 21:05 71 112/79 98 02/20/24 21:03 58 L 02/20/24 20:52 54 L 02/20/24 20:50 56 L 107/69 97 02/20/24 20:35 57 L 109/72 98 02/20/24 20:20 62 106/67 96 02/20/24 20:07 62 100/62 97 02/20/24 18:36 53 L 18 97/56 98 02/20/24 17:44 97.6 F 54 L 18 103/60 97 02/20/24 17:15 58 L 14 111/56 95 02/20/24 17:00 52 L 12 102/54 95 02/20/24 16:45 55 L 18 100/55 95 02/20/24 16:30 51 L 18 96/51 95 02/20/24 16:15 49 L 18 94/53 93 L 02/20/24 16:00 55 L 18 94/52 95 02/20/24 15:45 47 L 18 96/54 99 02/20/24 15:30 51 L 18 90/53 99 02/20/24 15:15 96.8 F L 71 18 96/53 97 02/20/24 11:59 97.7 F 98 16 138/65 Intake and Output 02/20/24 02/21/24 02/21/24 22:59 06:59 14:59 Intake Total 600 Output Total 10 400 Balance 590 -400 Intake: IV 600 Output: Urine 400 Estimated Blood Loss 10 Other: Voiding Method Toilet # Voids 1 1 Weight 114.9 kg PHYSICAL EXAMINATION: Patient is lying in the bed comfortably, no acute distress, awake alert and oriented. Morbidly obese. HEENT: Normocephalic. Neck is supple. Pupils reactive. Nostrils clear. Oral cavity is moist. Neck reveals no JVD, carotid bruits, or thyromegaly. CHEST EXAMINATION: Trachea is central. Symmetrical expansion. Bibasilar diminished sounds otherwise lung mccord clear to auscultation and percussion. CARDIAC: Normal S1, S2 with no gallops. No murmurs ABDOMEN: Soft. Bowel sounds present. Mild tenderness in the upper abdomen. No guarding or rigidity.. No organomegaly. No abdominal bruits. Extremities: reveal no edema. No clubbing or cyanosis Neurologically awake, alert, oriented x3 with well-coordinated movements. No focal deficits noted Skin: No rash or skin lesions. Psychiatric: Coperative. Nonsuicidal Musculoskeletal: No joint swelling or deformity. Normal range of motion. Results CBC & Chem 7: 02/21/24 03:27 02/21/24 03:27 Labs: Abnormal Lab Results - Last 24 Hours (Table) 02/21/24 02/21/24 Range/Units 03:27 03:27 MCH 26.7 L (27.0-32.0) pg MCHC 31.2 L (32.0-37.0) g/dL Lymphocytes # 0.70 L (0.90-5.00) X 10*3/uL Eosinophils # 0 L (0.04-0.35) X 10*3/uL Carbon Dioxide 19.9 L (21.6-31.8) mmol/L Anion Gap 13.10 H (4.00-12.00) mmol/L Assessment and Plan Assessment: Status post da Reji assisted laparoscopic sleeve gastrectomy postoperative day 1 Hyperlipidemia Hypothyroidism Morbid obesity with BMI of 42.2 GI and DVT prophylaxis with Pepcid and Lovenox subcu Plan: Patient with and done symptomatic management for nausea and vomiting. Continue with PPI. Upper GI series postsurgical changes without evidence of contrast extravasation. Patient was started back on home dose of levothyroxine. Pain management and bowel regimen as needed. Follow-up repeat BMP tomorrow. Further recommendations based on the clinical course. Thank you for your consult.
[2024-02-22] MEDS ORDERED: bisacodyL 5 MG TABLET.DR PO PRN (08:00)
[2024-02-22 09:12] VITALS: BP 117/71; RESP 18; TEMP 98.2
[2024-02-22 09:25] LABS: Blood Urea Nitrogen 11.8 mg/dL (9.0-27.0); Glucose 79 mg/dL (70-110)
[2024-02-22 09:26] LABS: Calcium 8.9 mg/dL (8.7-10.3); Carbon Dioxide 19.5 mmol/L (21.6-31.8); Chloride 112 mmol/L (96-109); Potassium 4.1 mmol/L (3.5-5.5); Sodium 141 mmol/L (135-145)
[2024-02-22 11:35] VITALS: PULSE 72
--- NOTE | 2024-02-22 12:10 | P.PN ---
Subjective Progress Note Date: 02/22/24 Hospital course: Patient is a very pleasant 53-year-old female with a past medical history of hypothyroidism, osteoarthritis, and morbid obesity with BMI of 42.2 kg/m. She is currently admitted under general surgery team status post elective laparoscopic sleeve gastrectomy. We assumed care of this patient this morning for continued medical management throughout hospitalization. Physical exam: Patient seen and fully evaluated at bedside this morning. She is postoperative day 2. She reports feeling much better today. She reports feeling a little "gassy" but otherwise states pain is much better controlled this morning. She reports she has been ambulating to and from restroom without any difficulties and is currently tolerating a clear liquid diet. She denies any episodes of nausea and reports having normal urination and bowel movements today. Vital signs reviewed and stable. General: Nontoxic, no distress and appears stated age. Derm: Skin warm and dry, normal coloration for ethnicity. Head: Atraumatic, normocephalic and symmetric. Eyes: EOM's intact, no lid lag, and anicteric sclera Mouth: no lip lesions, mucus membranes moist Cardiovascular: regular rate and rhythm with normal S1S2, no murmur, positive posterior tibial pulses bilaterally, and cap refill < 2 seconds. Lungs: Respirations even, regular, and unlabored on room air. Lungs CTA bilaterally, no rhonchi, no rales, no wheezing, and no accessory muscle usage. Abdominal: soft, nontender to palpation, no guarding, no appreciable organomegaly. Laparoscopic incisions intact and abdominal binder in place. Ext: ROM intact. No gross muscle atrophy, no edema, no contractures Neuro: Speech clear, face symmetrical and CN II-XII grossly intact with no noted focal neuro deficits Psych: Alert and oriented to person, place, time, and situation. Appropriate and pleasant affect. Assessment and Plan of Care: Status post da Reji assisted laparoscopic sleeve gastrectomy Morbid obesity with BMI of 42.2 kg/m -Management per primary admitting general surgery team including DVT prophylaxis, pain management, wound/dressing management, and advancement of diet. -Currently DVT prophylaxis with Lovenox. -Continue GI prophylaxis with Protonix 40 mg daily. Non-anion gap metabolic acidosis Chloride 112, bicarb 19.5, and anion gap of 9.50. Continue gentle IV fluid hydration with 0.9% normal saline with 20 of KCl at 100 cc/h. Hypothyroidism -Continue levothyroxine 50 mcg daily. Data reviewed: -Vital signs reviewed. Blood pressure 117/71, heart rate 63, respiratory rate 18, temp 98.2 F, and SpO2 of 96% on room air. -Morning labs reviewed. Revealing non-anion gap metabolic acidosis with chloride of 112, bicarb 19.5, and anion gap of 9.50. Blood glucose 79. Patient is medically optimized for discharge pending clearance from primary admitting general surgery team. Thank you for allowing us to participate in the care of this pleasant patient. Do not hesitate to contact us with questions. Someone can be reached from the [facility] hospitalist group all hours of the day at [phone] or via [employer]. Patient was seen independently by Nurse Pracitioner. This document was prepared using [employer] dictation software. Please allow for errors in strategic development manager, while rare they do occur. Abimael Delgado NP rendered care for this patient independently, reviewed the findings and plan as documented in the note above and agree with plan. I did not physically speak with or examine the patient on this date. Objective - Vital Signs Vital signs: Vital Signs Temp 98.1 F 02/22/24 01:24 Pulse 60 02/22/24 07:37 Resp 17 02/22/24 01:24 BP 120/74 02/22/24 01:24 Pulse Ox 99 02/22/24 01:24 FiO2 Intake & Output 02/21/24 02/22/24 02/22/24 18:59 06:59 18:59 Intake Total 200 1400 Balance 200 1400 Weight 114.9 kg Intake: Intake, IV Titration 1200 Amount 0.9% NaCl with KCl 20 Meq 1200 /l 1,000 ml @ 100 mls/hr IV .Q10H [facility] Rx#: [id number] Oral 200 200 Other: Voiding Method Toilet Toilet # Voids 2 # Bowel Movements 2 - Labs CBC & Chem 7: 02/21/24 03:27 02/22/24 02:51 Labs: Abnormal Lab Results - Last 24 Hours (Table) 02/21/24 02/21/24 Range/Units 03:27 03:27 MCH 26.7 L (27.0-32.0) pg MCHC 31.2 L (32.0-37.0) g/dL Lymphocytes # 0.70 L (0.90-5.00) X 10*3/uL Eosinophils # 0 L (0.04-0.35) X 10*3/uL Carbon Dioxide 19.9 L (21.6-31.8) mmol/L Anion Gap 13.10 H (4.00-12.00) mmol/L
--- NOTE | 2024-02-22 13:23 | P.DS ---
Providers Date of admission: 02/21/24 13:47 Expected date of discharge: 02/22/24 Attending physician: Aleks Martin Consults: 02/20/24 15:13 Consult Physician Routine Consulting Provider: Mike Bennett Consult Reason/Comments: med mgmt Do you want consulting provider notified?: Yes Primary care physician: Madi Ku Hospital Course: Discharge diagnosis 1. Morbid obesity, hypercholesterolemia Hospital course This is a 53-year-old female with a known history of morbid obesity. She is status post sleeve gastrectomy. Her upper GI showed no evidence of leak or ob struction. She is tolerating diet. She has been up and ambulating. She is having flatus and bowel movements. Denies any difficulty urinating. She is afebrile. She is stable for discharge. Please refer to chart for any further details. Physician Server Manager note has been reviewed by physician. Signing provider agrees with the documented findings, assessment, and plan of care. Patient Condition at Discharge: Stable Plan - Discharge Summary Discharge Rx Participant: Yes New Discharge Prescriptions: New bisacodyL [Dulcolax] 5 mg PO DAILY PRN #10 tab PRN Reason: Constipation Omeprazole [PriLOSEC] 40 mg PO DAILY #90 cap Ondansetron Odt [Zofran Odt] 4 mg PO Q8HR PRN #9 tab PRN Reason: Nausea Simethicone 40 mg/0.6 ml Drops [Mylicon Drops] 40 mg PO PCHS PRN #30 ml PRN Reason: Gas Continue Levothyroxine Sodium [Synthroid] 50 mcg PO DAILY Vitamin B Complex 1 tab PO DAILY Calcium Citrate 250 mg PO BID Cholecalciferol [Vitamin D3 (10 Mcg = 400 Iu)] 10 mcg PO DAILY Discharge Medication List Cholecalciferol [Vitamin D3 (10 Mcg = 400 Iu)] 10 mcg PO DAILY 06/06/23 [History] Levothyroxine Sodium [Synthroid] 50 mcg PO DAILY 06/06/23 [History] Vitamin B Complex 1 tab PO DAILY 01/09/24 [History] Calcium Citrate 250 mg PO BID 02/16/24 [History] Omeprazole [PriLOSEC] 40 mg PO DAILY #90 cap 02/21/24 [Rx] Ondansetron Odt [Zofran Odt] 4 mg PO Q8HR PRN #9 tab 02/21/24 [Rx] Simethicone 40 mg/0.6 ml Drops [Mylicon Drops] 40 mg PO PCHS PRN #30 ml 02/21/24 [Rx] bisacodyL [Dulcolax] 5 mg PO DAILY PRN #10 tab 02/21/24 [Rx] [facility] [facility] [facility] [place] 02/24/24 10:00 am Patient Instructions/Handouts: *Surgery [facility] - Scopalamine Patch Instructions, Nutrition after Bariatric Surgery (DC), Laparoscopic Sleeve Gastrectomy (DC) Activity/Diet/Wound Care/Special Instructions: No lifting over 10 pounds You may shower. No soaking or tub baths for 2 weeks Very light activity until you are reevaluated at your follow up appointment with your surgeon No straws or carbonated beverages Liquid Tylenol OTC every 6 hours prn pain Discharge Disposition: HOME SELF-CARE
== END 2024-02-22 12:47 | disposition home or self-care (01) ==
LOC: OR 11:14 → 4SSUR 15:15 → OR 02-21 13:47 → 4SSUR 02-21 13:47
PROVIDERS: ADMIT Surgery; ATTEND Surgery
DX: E66.01 Morbid (severe) obesity due to excess calories (principal); Z68.41 Body mass index [BMI] 40.0-44.9, adult; E78.00 Pure hypercholesterolemia, unspecified; E03.9 Hypothyroidism, unspecified; K29.70 Gastritis, unspecified, without bleeding; Z79.890 Hormone replacement therapy; Z83.3 Family history of diabetes mellitus; Z82.49 Family history of ischemic heart disease and other diseases of the circulatory system; Z80.51 Family history of malignant neoplasm of kidney
CPT/HCPCS: 43775; S2900; 74240; 80048; 80051; 82310; 82565; 83735; 84100; 84520; 85025; 88307; 94640; 96365; 96366; 96368; 96372; 96375; 96376

== ENCOUNTER → 2024-02-24 | Outpatient (CLI) | payer BC ==
[2024-02-24 11:30] VITALS: BP 105/71; PULSE 74; RESP 16; TEMP 98.2; BMI 42.7
--- NOTE | 2024-02-24 15:32 | P.BASOAP ---
Subjective Progress Note Date: 02/24/24 Principal diagnosis: Morbid obesity Patient returns for reevaluation. Underwent sleeve gastrectomy on Tuesday. Doing quite well. Drinking about 48 to 60 ounces of liquids daily. Patient today is feeling slightly weaker. She thinks it is related to decreased calories. She does not take any antihypertensives. Systolic blood pressure 105. Heart rate normal. Making good urine. No significant pain. No significant dysphagia symptoms. Objective - Vital Signs Vital signs: Vital Signs Temp 98.2 F 02/24/24 11:18 Pulse 74 02/24/24 11:18 Resp 16 02/24/24 11:18 BP 105/71 02/24/24 11:18 Pulse Ox FiO2 Intake & Output 02/23/24 02/24/24 02/24/24 18:59 06:59 18:59 Weight 112.854 kg - Exam Abdomen: Soft, nondistended, incisions clean and dry, mild incisional tenderness Assessment/Plan (1) Morbid obesity Narrative/Plan: 53-year-old female doing well after sleeve gastrectomy earlier this week. Begin protein shakes. May utilize Gatorade or similar as well intermittently in small volumes. Continue Tylenol for pain. Continue omeprazole. Recheck 1 week. Plan: Date: 02/24/24 Initial Weight: 117.934 kg Initial BMI: 44.6 Current Weight: 112.854 kg Current BMI: 42.7 Type of Surgery: Total Volume in Band: Previous Volume: Volume Removed: Volume Added: Band Size:
== END ==
LOC: BARWHC3 10:19
PROVIDERS: ATTEND Surgery
DX: E66.01 Morbid (severe) obesity due to excess calories (principal); Z98.84 Bariatric surgery status; Z68.41 Body mass index [BMI] 40.0-44.9, adult
CPT/HCPCS: 99211

== ENCOUNTER → 2024-03-02 | Outpatient (CLI) | payer BC ==
[2024-03-02 10:55] VITALS: BP 118/82; PULSE 92; TEMP 98.1; BMI 41.7
--- NOTE | 2024-03-02 12:31 | P.BASOAP ---
Subjective Progress Note Date: 03/02/24 Principal diagnosis: Morbid obesity Patient returns today for recheck. Doing well since last visit. No longer feeling lightheaded. She says that was the lack of calories that was causing the symptoms. Tolerating liquids. She is drinking about 60 to 70 ounces of liquids daily and about 70 g of protein daily. No pain. Heart rate normal. Objective - Vital Signs Vital signs: Vital Signs Temp 98.1 F 03/02/24 10:51 Pulse 92 03/02/24 10:51 Resp BP 118/82 03/02/24 10:51 Pulse Ox FiO2 Intake & Output 03/01/24 03/02/24 03/02/24 18:59 06:59 18:59 Weight 110.223 kg - Exam Abdomen: Soft, nondistended, mild tenderness at supraumbilical incision with mild ecchymosis there Assessment/Plan (1) Morbid obesity Narrative/Plan: Patient doing well after recent sleeve gastrectomy. Continue slowly advancing diet. Continue encouraging protein and liquid intake. Continue antiacids. Recheck 2 weeks. Plan: Date: 03/02/24 Initial Weight: 117.934 kg Initial BMI: 44.6 Current Weight: 110.223 kg Current BMI: 41.7 Type of Surgery: Total Volume in Band: Previous Volume: Volume Removed: Volume Added: Band Size:
== END ==
LOC: BARWHC3 10:04
PROVIDERS: ATTEND Surgery
DX: E66.01 Morbid (severe) obesity due to excess calories (principal); Z68.41 Body mass index [BMI] 40.0-44.9, adult
CPT/HCPCS: 99211

== ENCOUNTER → 2024-03-13 | Outpatient (CLI) | payer BC ==
[2024-03-13 15:02] VITALS: BP 132/82; PULSE 107; RESP 16; TEMP 98; BMI 40.6
--- NOTE | 2024-03-13 15:12 | P.BASOAP ---
Subjective Progress Note Date: 03/13/24 Principal diagnosis: Morbid obesity Patient returns for recheck. Doing well since last visit. Has lost 6 pounds in the last 1 to 2 weeks. Still on pured diet. No pain. No nausea or vomiting. No heartburn. Heart rate was slightly elevated today but will be rechecked. Says she was stressed with being here later than her appointment time. Still constipated intermittently. Objective - Vital Signs Vital signs: Vital Signs Temp 98 F 03/13/24 14:59 Pulse 107 H 03/13/24 14:59 Resp 16 03/13/24 14:59 BP 132/82 03/13/24 14:59 Pulse Ox FiO2 Intake & Output 03/12/24 03/13/24 03/13/24 18:59 06:59 18:59 Weight 107.501 kg - Exam Abdomen: Soft, nondistended, nontender, incisions clean and dry Assessment/Plan (1) Morbid obesity Narrative/Plan: Patient doing well after recent sleeve gastrectomy. Continue daily antiacids. Continue gradually advancing diet. Continue increasing exercise minutes. Recheck 1 month. Check 1 month labs at this time. Will recheck heart rate prior to discharge. Plan: Date: 03/13/24 Initial Weight: 117.934 kg Initial BMI: 44.6 Current Weight: 107.501 kg Current BMI: 40.6 Type of Surgery: Vertical Sleeve Gastrectomy Total Volume in Band: Previous Volume: Volume Removed: Volume Added: Band Size:
== END ==
LOC: BARWHC3 14:49
PROVIDERS: ATTEND Surgery
DX: E66.01 Morbid (severe) obesity due to excess calories (principal); K21.9 Gastro-esophageal reflux disease without esophagitis; F17.200 Nicotine dependence, unspecified, uncomplicated; Z68.41 Body mass index [BMI] 40.0-44.9, adult; Z71.3 Dietary counseling and surveillance; Z90.3 Acquired absence of stomach [part of]; Z91.040 Latex allergy status; Z88.6 Allergy status to analgesic agent
CPT/HCPCS: 97803; 99211

== ENCOUNTER → 2024-05-15 | Outpatient (CLI) | payer BC ==
[2024-05-15 14:12] VITALS: BP 143/93; PULSE 91; RESP 16; TEMP 98; BMI 36.3
--- NOTE | 2024-05-15 14:34 | P.BASOAP ---
Subjective Progress Note Date: 05/15/24 Principal diagnosis: Morbid obesity Patient returns for recheck. Last seen 1 month ago. Has done excellent with her weight loss. Still having some intermittent episodes of dysphagia with foamy vomiting. Has happened recently to some of the foods that she was previously able to tolerate. Usually happens about once per week. When this happens she has a sharp discomfort in the epigastric region that is a precursor to this. No pain in between episodes. No heartburn. Still on antiacids. No fevers. No tachycardia. Objective - Vital Signs Vital signs: Vital Signs Temp 98 F 05/15/24 14:08 Pulse 91 05/15/24 14:08 Resp 16 05/15/24 14:08 BP 143/93 05/15/24 14:08 Pulse Ox FiO2 Intake & Output 05/14/24 05/15/24 05/15/24 18:59 06:59 18:59 Weight 96.162 kg - Exam Abdomen: Soft, nontender, nondistended Assessment/Plan (1) Morbid obesity Narrative/Plan: 54-year-old female doing relatively well after sleeve gastrectomy 2.5 to 3 months ago. Has had some intermittent vomiting recently. Continue antiacids. Monitor symptoms. If symptoms persist consider CT abdomen pelvis. She will contact me with any issues. Check 3-month labs next visit. Plan: Date: 05/15/24 Initial Weight: 117.934 kg Initial BMI: 44.6 Current Weight: 96.162 kg Current BMI: 36.3 Type of Surgery: Vertical Sleeve Gastrectomy Total Volume in Band: Previous Volume: Volume Removed: Volume Added: Band Size:
== END ==
LOC: BARWHC3 14:02
PROVIDERS: ATTEND Surgery
DX: E66.01 Morbid (severe) obesity due to excess calories (principal); Z68.36 Body mass index [BMI] 36.0-36.9, adult
CPT/HCPCS: 97803; 99211

== ENCOUNTER → 2024-06-12 | Outpatient (CLI) | payer BC ==
[2024-06-12 14:29] VITALS: BP 118/82; PULSE 65; TEMP 98.1; BMI 34.3
--- NOTE | 2024-06-12 14:55 | P.BASOAP ---
Subjective Progress Note Date: 06/12/24 Principal diagnosis: Morbid obesity Patient returns for reevaluation. Last seen 1 month ago. Patient says the intermittent episode of foamy emesis has improved now happening once a week or less. Still occasionally happening to random food items. No pain. No GERD. Takes antiacids once daily. 12 pounds down since last visit. Objective - Vital Signs Vital signs: Vital Signs Temp 98.1 F 06/12/24 14:26 Pulse 65 06/12/24 14:26 Resp BP 118/82 06/12/24 14:26 Pulse Ox FiO2 Intake & Output 06/11/24 06/12/24 06/12/24 18:59 06:59 18:59 Weight 90.718 kg - Exam Abdomen: Soft, nontender, nondistended Assessment/Plan (1) Morbid obesity Narrative/Plan: Patient doing well at this time. Continue dietary and exercise regimen. Monitor for vomiting symptoms. Discussed possibly increasing antiacid to twice daily if foamy emesis occurs anymore. Check 3-month labs at this time. Follow- up 4 to 6 weeks. Plan: Date: 06/12/24 Initial Weight: 117.934 kg Initial BMI: 44.6 Current Weight: 90.718 kg Current BMI: 34.3 Type of Surgery: Total Volume in Band: Previous Volume: Volume Removed: Volume Added: Band Size:
== END ==
LOC: BARWHC3 14:04
PROVIDERS: ATTEND Surgery
DX: E66.01 Morbid (severe) obesity due to excess calories (principal); Z68.34 Body mass index [BMI] 34.0-34.9, adult
CPT/HCPCS: 99211

== ENCOUNTER → 2024-07-10 | Outpatient (CLI) | payer BC ==
[2024-07-10 19:50] LABS: BUN/Creat Ratio 36.33 Ratio (12.00-20.00); Blood Urea Nitrogen 21.8 mg/dL (9.0-27.0); Carbon Dioxide 23.5 mmol/L (21.6-31.8); Chloride 106 mmol/L (96-109); Glucose 101 mg/dL (70-110); Iron 39 UG/DL (50-170); Potassium 4.1 mmol/L (3.5-5.5); Sodium 142 mmol/L (135-145)
[2024-07-10 19:51] LABS: ALT 11 U/L (8-44); AST 15 U/L (13-35); Albumin 4.3 g/dL (3.8-4.9); Albumin/Globulin Ratio 1.72 Ratio (1.60-3.17); Alkaline Phosphatase 81 U/L (41-126); Globulin 2.5 g/dL (1.6-3.3); Total Bilirubin 0.3 mg/dL (0.3-1.2); Total Protein 6.8 g/dL (6.2-8.2)
[2024-07-10 21:02] LABS: HCT 45.1 % (37.2-46.3); HGB 14.3 g/dL (12.0-15.0); MCH 27.8 pg (27.0-32.0); MCHC 31.7 g/dL (32.0-37.0); MCV 87.7 FL (80.0-97.0); Mean Platelet Volume 10.9 FL (9.5-12.2); NRBC Per 100 WBC 0 X 10*3/uL (0.00-0.01); Platelet Count 191 X 10*3/uL (140-440); RBC 5.14 X 10*6/uL (4.10-5.20); RDW 13.8 % (11.5-14.5); WBC 5.93 X 10*3/uL (4.50-10.00)
[2024-07-12 06:33] LABS: Vitamin A 40 ug/dL (38-106)
== END | disposition home or self-care (01) ==
LOC: LABWHC1 15:46
PROVIDERS: ATTEND Surgery
DX: K90.9 Intestinal malabsorption, unspecified (principal); E55.9 Vitamin D deficiency, unspecified
CPT/HCPCS: 36415; 80053; 82306; 82607; 82746; 83540; 84425; 84590; 85027

== ENCOUNTER → 2024-07-17 | Outpatient (CLI) | payer BC ==
[2024-07-17 14:29] VITALS: BP 115/81; PULSE 71; RESP 16; TEMP 97.6; BMI 32.4
--- NOTE | 2024-07-17 14:51 | P.BASOAP ---
Subjective Progress Note Date: 07/17/24 Principal diagnosis: Morbid obesity Patient returns for recheck. Last seen 06/12. Doing well. Still having occasional episodes of vomiting with foamy emesis after certain dry meats. Mostly chicken and pork. Usually happens about once per week or so. Takes omeprazole once daily. Still taking Actigall as well. Recent lab work shows iron of 39. It was 33 previously. Taking multivitamin with iron currently. Her B12 was elevated at 1018. She is exercising more. Denies rectal bleeding or melena. Last colonoscopy 5 years ago. No family history of colon cancer. She has lost 11 pound since her last visit. Objective - Vital Signs Vital signs: Vital Signs Temp 97.6 F 07/17/24 14:27 Pulse 71 07/17/24 14:27 Resp 16 07/17/24 14:27 BP 115/81 07/17/24 14:27 Pulse Ox FiO2 Intake & Output 07/16/24 07/17/24 07/17/24 18:59 06:59 18:59 Weight 85.729 kg - Exam Abdomen: Soft, nontender, nondistended Assessment/Plan (1) Morbid obesity Narrative/Plan: Patient doing well postoperatively. Continue dietary and exercise regimen. Decrease B12 to once per week oral medication. Decrease Actigall to every other day until prescription runs out. May discontinue following that. Plan recheck 6 to 8 weeks. Plan: Date: 07/17/24 Initial Weight: 117.934 kg Initial BMI: 44.6 Current Weight: 85.729 kg Current BMI: 32.4 Type of Surgery: Vertical Sleeve Gastrectomy Total Volume in Band: Previous Volume: Volume Removed: Volume Added: Band Size:
== END ==
LOC: BARWHC3 14:21
PROVIDERS: ATTEND Surgery
DX: E66.01 Morbid (severe) obesity due to excess calories (principal); Z68.32 Body mass index [BMI] 32.0-32.9, adult
CPT/HCPCS: 97803; 99211

== ENCOUNTER → 2024-08-21 | Outpatient (CLI) | payer BC ==
--- NOTE | 2024-08-21 16:21 | US ---
EXAMINATION TYPE: US thyroid st tissue head/neck DATE OF EXAM: 08/21/2024 COMPARISON: 06/14/2023 CLINICAL INDICATION: Female, 54 years old with history of E04.2 NONTOXIC MULTINODULAR GOITER; Hx Bx, patient denies any other signs, symptoms, or relevant history TECHNIQUE: Grayscale and color Doppler imaging of the thyroid gland. FINDINGS: GLAND SIZE: Right Lobe: 5.7 x 1.6 x 1.9 cm Overall Parenchyma: homogeneous Left Lobe: 5.2 x 2.2 x 2.4 cm Overall Parenchyma: homogeneous Isthmus Thickness: 0.2 cm NODULES RIGHT: # of nodules measured on right: 2 1. 0.8 X 0.5 x 0.5 cm, lower lateral Prior size: no prior TIRADS Score: 4 TIRADS Category 4: Composition: Solid or almost completely solid (2 points). Echogenicity: Hypoechoic (2 points). Shape: Wider than tall (0 points). Margin: Smooth (0 points). Echogenic foci: None or large comet-tail artifacts (0 points) Recommendation: If >1.5cm: FNA; If >1cm: Follow up at 1,2, 3,5 years 2. 0.8 X 0.6 x 0.8 cm, mid medial, Prior size: no prior TIRADS Score: 3 TIRADS Category 3: Composition: Solid or almost completely solid (2 points). Echogenicity: Hyperechoic or isoechoic (1 point). Shape: Wider than tall (0 points). Margin: Smooth (0 points). Echogenic foci: None or large comet-tail artifacts (0 points) Recommendation: If >2.5cm: FNA; If >1.5cm: Follow up at 1,3,5 years LEFT: # of nodules measured on left: 2 1. 3.1 X 1.6 x 1.5 cm, lower lateral, Prior size: 2.1 x 1.1 x 1.7 cm - ? singular vs multiple TIRADS Score: 3 TIRADS Category 3: Composition: Solid or almost completely solid (2 points). Echogenicity: Hyperechoic or isoechoic (1 point). Shape: Wider than tall (0 points). Margin: Smooth (0 points). Echogenic foci: None or large comet-tail artifacts (0 points) Recommendation: Previously biopsied 06/14/2023 2. 0.8 X 0.5 x 1.2 cm, mid medial, Prior size: no prior TIRADS Score: 4 TIRADS Category 4: Composition: Solid or almost completely solid (2 points). Echogenicity: Hypoechoic (2 points). Shape: Wider than tall (0 points). Margin: Smooth (0 points). Echogenic foci: None or large comet-tail artifacts (0 points) Recommendation: If >1.5cm: FNA; If >1cm: Follow up at 1,2, 3,5 years 2017 ACR TI-RADS LEVEL: ISTHMUS: # of nodules measured in the isthmus: 0 Bilateral neck scanned, no evidence of lymphadenopathy. IMPRESSION: Thyroid nodules of which a left 3.1 cm nodule was previously biopsied. The other thyroid nodules meet criteria for follow-up. Highest TI-RADS level nodule reported: 2016 ACR TI-RADS LEVEL: TI-RADS 4 - Moderately Suspicious: Follow if > 1 cm, FNA if > 1.5 cm TI-RADS assessment score and recommendation for follow-up based on appropriate scoring and treatment protocols. TR1 Benign No FNA TR2 Not suspicious No FNA TR3: If nodule size is ? 2.5 cm, FNA is recommended. If nodule size is ? 1.5 cm, follow-up imaging at 1, 3, and 5 years is recommended. TR4: If nodule size is ? 1.5 cm, FNA is recommended. If nodule size is ? 1.0 cm, follow-up imaging at 1, 2, 3, and 5 years is recommended. TR5: If nodule size is ? 1.0 cm, FNA is recommended. If nodule size is ? 0.5 cm, annual follow-up for up to 5 years is recommended. TR 1 thyroid nodules have a 0.3 % risk of malignancy. TR 2 thyroid nodules have a 1.5 % risk of malignancy. TR 3 thyroid nodules have a 4.8 % risk of malignancy. TR 4 thyroid nodules have a 9.1 % risk of malignancy. TR 5 thyroid nodules have a 35 % risk of malignancy. [email or web address] [facility], , 08/21/2024 4:18 PM
[2024-08-21 20:43] LABS: T4, Free (Free Thyroxine) 0.99 ng/dL (0.80-1.80)
== END | disposition home or self-care (01) ==
LOC: RADUSWWP 15:28
PROVIDERS: ATTEND Family Medicine
DX: E04.2 Nontoxic multinodular goiter (principal)
CPT/HCPCS: 76536; 84439; 84443

== ENCOUNTER → 2024-08-28 | Outpatient (CLI) | payer BC ==
[2024-08-28 14:24] VITALS: BP 112/81; PULSE 55; RESP 16; TEMP 98.5; BMI 30.4
--- NOTE | 2024-08-28 16:32 | P.BASOAP ---
Subjective Progress Note Date: 08/28/24 Principal diagnosis: Morbid obesity Patient returns for recheck. Has done well since her last visit. Lost 12 pounds. Has been vomiting with leftovers but tolerating most other foods. Left knee pain is better after recent injection. Did not tolerate a small glass of wine recently. Objective - Vital Signs Vital signs: Vital Signs Temp 98.5 F 08/28/24 14:21 Pulse 55 L 08/28/24 14:21 Resp 16 08/28/24 14:21 BP 112/81 08/28/24 14:21 Pulse Ox FiO2 Intake & Output 08/27/24 08/28/24 08/28/24 18:59 06:59 18:59 Weight 80.286 kg - Exam Abdomen: Soft, nontender, nondistended Assessment/Plan (1) Morbid obesity Narrative/Plan: Patient doing well at this time. Continue dietary and exercise regimen. Follow-up 6 to 8 weeks. Plan: Date: 08/28/24 Initial Weight: 117.934 kg Initial BMI: 44.6 Current Weight: 80.286 kg Current BMI: 30.4 Type of Surgery: Vertical Sleeve Gastrectomy Total Volume in Band: Previous Volume: Volume Removed: Volume Added: Band Size:
== END ==
LOC: BARWHC3 14:08
PROVIDERS: ATTEND Surgery
DX: E66.01 Morbid (severe) obesity due to excess calories (principal); Z68.30 Body mass index [BMI] 30.0-30.9, adult
CPT/HCPCS: 99211

== ENCOUNTER 2024-09-10 12:52 | Day surgery (SDC) | payer BC ==
[2024-09-10 13:06] VITALS: BP 125/84; PULSE 61; RESP 12; TEMP 98
--- NOTE | 2024-09-10 14:55 | US ---
CLINICAL INDICATION: Female 54 years old with a history of E03.8 OTHER SPECIFIED HYPOTHYROIDISM. Abno rmal ultrasound. COMPARISON: Ultrasound thyroid study from August 21, 2024. PROCEDURE: ULTRASOUND-GUIDED THYROID LEFT NODULE FNA Pre-procedure diagnosis: TR 3 lesion. Post-procedure diagnosis: Same. Anesthesia: Locally anesthetized with 1% lidocaine. Physician: Exam was performed by myself. EBL: Minimal. Specimens: 5 FNA aspirates obtained. Condition: Stable. Unanticipated events: None. Procedure Description: Informed consent was obtained. Patient was brought to the ultrasound procedure suite and placed supi ne upon the table with neck extended. Multiple grayscale images and real-time imaging was obtained of the thyroid gland. There are felt to be 2 adjacent isoechoic predominantly solid nodules in the left thyroid lobe measuring near 2.0 cm thought to be 1 distinct nodule on most recent prior ultrasound. Sampling of both areas is performed. The skin over the procedure site was marked, prepped, and draped in usual sterile fashion. Then a ti meout was then performed. The site was then locally anesthetized with 1% lidocaine. Under direct ult rasound guidance the needle was then localized to left sided nodule/nodules. A total of 5 FNA samples were obtained from the area of concern. Samples were sent to the lab for further evaluation. After the samples were obtained, hemostasis achieved at the site by manual compression. A sterile Ba nd-Aid was placed. Patient tolerated the procedure well with no immediate complication. Patient was subsequently discharged home. IMPRESSION: Successful ultrasound guided FNA with samples sent to pathology for further analysis. Low index of suspicion at time of procedure. [facility], , 09/10/2024 2:53 PM
== END 2024-09-10 14:15 | disposition home or self-care (01) ==
LOC: RADPROMAIN 12:52
PROVIDERS: ATTEND Internal Medicine Endocrinology, Diabetes & Metabolism
DX: E04.1 Nontoxic single thyroid nodule (principal)
CPT/HCPCS: 10005; 88173; 88305